=== PATIENT | female | born 1930 ===

== ENCOUNTER 2017-06-24 06:23 | Day surgery (SDC) | payer MEDICARE, OTHER ==
[2017-06-24] VITALS (10 sets, daily range): BP systolic 150–193; BP diastolic 65–89
[~2017-06-24] VITALS: Ht 157.5 cm; Wt 93.4 kg
[2017-06-24] MEDS ORDERED: Dexamethasone 4mg/ml vial ONE (07:07)
[2017-06-24] MEDS ORDERED: Bupivacaine 0.5% Inj 30 ml vial INJ ONE (07:08)
[2017-06-24] MEDS ORDERED: Lidocaine 1% Plain 30 ml INJ ONE (07:08)
[2017-06-24] MEDS ORDERED: FARXIGA5 MG PO (07:15)
[2017-06-24] MEDS ORDERED: JANUMET 50-1,01 EACH ORAL (07:15)
[2017-06-24] MEDS ORDERED: MECLIZINE HCL12.5 MG ORAL (07:15)
[2017-06-24] MEDS ORDERED: NOVOLOG100 UNIT/3 SUBQ (07:15)
[2017-06-24] MEDS ORDERED: LEVEMIR100 UNIT/1 SUBQ (07:15)
[2017-06-24 07:24] LABS: INR 1.1 (0.9-1.1); PROTHROMBIN TIME 11.4 SEC (9.30-11.50)
[2017-06-24] MEDS ORDERED: Propofol 10mg/ml 20ml IV ONE (07:30)
[2017-06-24] MEDS ORDERED: NS Irrig 1000ml ONE (07:30)
[2017-06-24] MEDS ORDERED: LR 1000ml ONE (07:30)
[2017-06-24] MEDS ORDERED: Sterile Water Irrig 1000ml IRRIG ONE (07:30)
[2017-06-24] MEDS ORDERED: fentaNYL 100 mcg/2 mL IV ONE (07:30)
[2017-06-24] MEDS ORDERED: Midazolam 2mg/2ml Inj ONE (07:30)
--- NOTE | 2017-06-24 07:40 | Pre-Procedure Note/Attestation ---
Pre-Procedure Note/Attestation Complete Prior to Procedure Planned Procedure: left Procedure Narrative: Hammertoe correction fifth left digit Indications for Procedure Pre-Operative Diagnosis: Hammertoe deformity fifth left digit Attestation I attest that I discussed the nature of the procedure; its benefits; risks and complications; and alternatives (and the risks and benefits of such alternatives ), prior to the procedure, with the patient (or the patient's legal packaging sales representative). I attest that, if there was a reasonable possibility of needing a blood transfusion, the patient (or the patient's legal packaging sales representative) was given the [facility] standardized written summary, pursuant to the Etienne Erlanger Blood Safety Act ([place] Health and Safety Code # 1645, as amended). I attest that I re-evaluated the patient just prior to the surgery and that there has been no change in the patient's H&P, except as documented below: KIM MARTIN Jun 24, 2017 07:40
[2017-06-24] MEDS ORDERED: LR 1000ml 1,000 ML IVLG SCH (08:14)
--- NOTE | 2017-06-24 08:14 | Anethesia Preoperative Eval ---
Anesthesia Pre-op PMH/ROS General Date of Evaluation: Jun 24, 2017 Time of Evaluation: 07:15 Anesthesiologist: Bailey ASA Score: ASA 3 Mallampati Score Class I : Soft palate, uvula, fauces, pillars visible Class II: Soft palate, uvula, fauces visible Class III: Soft palate, base of uvula visible Class IV: Only hard plate visible Mallampati Classification: Class III Surgeon: Pam Diagnosis: L 5-th toe hammer toe deformity Surgical Procedure: l foot 5-th toe hammer toe correction Anesthesia History: none Family History: no anesthesia problems Allergies: Coded Allergies: No Known Allergies (Unverified , 06/24/17) Medications: see eMAR Past Medical History Cardiovascular: Reports: HTN, other - CHF, Denies: CAD, NM, valve dz, arrhythmia Pulmonary: Reports: LUIS CARLOS, Denies: asthma, COPD, other Gastrointestinal/Genitourinary: Reports: GERD, Denies: CRI, ESRD, other Neurologic/Psychiatric: Reports: depression/anxiety, Denies: dementia, CVA, TIA, other Endocrine: Reports: DM - on insulin HEENT: Reports: cataract (L), cataract (R), Denies: glaucoma, MARSHALL (L), MARSHALL (R), other Hematology/Immune: Reports: anemia Musculoskeletal/Integumentary: Reports: DJD, Denies: OA, RA, DDD, edema, other Other: obesity PMH Narrative: as above PSxH Narrative: see chart Anesthesia Pre-op Phys. Exam Physician Exam Last Vital Signs Date Time Temp Pulse Resp B/P (MAP) Pulse Ox O2 Delivery O2 Flow Rate FiO2 06/24/17 07:11 97.8 65 18 171/87 95 Room Air Constitutional: NAD Neurologic: CN 2-12 intact Cardiovascular: RRR Gastrointestinal: other - obesty Airway Exam Mallampati Score: Class III MO: limited Neck: stiff ROM: limited Teeth: missing Dentures: no upper, no lower Anesthesia Pre-op A/P Labs Coagulation Test 06/24/17 06:50 Prothrombin Time 11.4 SEC (9.30-11.50) Prothromb Time International Ratio 1.1 (0.9-1.1) Activated Partial Thromboplast Time 25 SEC (23-33) Studies Pre-op Studies: EKG - NSR Risk Assessment & Plan Assessment: ASA 3 Plan: MAC Status Change Before Surgery: No Pre-Antibiotics Drug: Ancef 1 gr. Given Within 1 Hr of Incision: Yes Time Given: 07:58 NIA BENAVIDEZ M.D. Jun 24, 2017 08:14
[2017-06-24] MEDS ORDERED: fentaNYL 100 mcg/2 mL IV PRN (08:15)
[2017-06-24] MEDS ORDERED: DiphenhydrAMINE 50mg/ml Inj IVP PRN (08:15)
--- NOTE | 2017-06-24 08:26 | Brief Operative Note ---
Immediate Post Operative Note Operative Note Pre-op Diagnosis: Hammertoe deformity fifth left digit Procedure: Arthroplasty fifth left PIPJ Post-op Diagnosis: same Post-op Diagnosis: same as pre-op Surgeon: Pam Anesthesiologist: Bailey Anesthesia: MAC Specimen: yes Complications: none Condition: stable Fluids: saline Estimated Blood Loss: minimal Drains: none Implant(s) used?: No KIM MARTIN Jun 24, 2017 08:26
--- NOTE | 2017-06-24 09:59 | Immediate Post-Op Evaluation ---
Immediate Post-Op Evalulation Immediate Post-Op Evalulation Procedure: L 5-th hammer toe correction Date of Evaluation: Jun 24, 2017 Time of Evaluation: 08:28 IV Fluids: 300 Blood Products: none Estimated Blood Loss: min Urinary Output: none Blood Pressure Systolic: 176 Blood Pressure Diastolic: 84 Pulse Rate: 72 Respiratory Rate: 20 O2 Sat by Pulse Oximetry: 99 Temperature (Fahrenheit): 97.7 Pain Score (1-10): 2 Nausea: No Vomiting: No Complications none Patient Status: awake, patent, none Hydration Status: adequate NIA BENAVIDEZ M.D. Jun 24, 2017 09:59
--- NOTE | 2017-06-24 10:29 | 48 Hour Post Anesthesia Eval ---
Post Anesthesia Evaluation Procedure: L 5-th hammer toe correction Date of Evaluation: Jun 24, 2017 Time of Evaluation: 10:28 Blood Pressure Systolic: 156 0: 79 Pulse Rate: 72 Respiratory Rate: 20 Temperature (Fahrenheit): 97.6 O2 Sat by Pulse Oximetry: 99 Airway: patent Nausea: No Vomiting: No Pain Intensity: 2 Hydration Status: adequate Cardiopulmonary Status: stable Mental Status/LOC: patient returned to baseline Follow-up Care/Observations: n/a Post-Anesthesia Complications: none Follow-up care needed: ready to discharge NIA BENAVIDEZ M.D. Jun 24, 2017 10:29
--- NOTE | 2017-06-24 11:29 | Diagnostic Imaging Report ---
Indication: Post surgery Comparison: None Findings: 3 views of the left foot were obtained. The head of the fifth proximal phalange of the dissected. No other surgical defects are seen. Bones are osteopenic. Calcaneal plantar and posterior spurs noted. Soft tissue swelling is present. Vascular calcifications are present. Impression: Postsurgical confirmation as discussed above
--- NOTE | 2017-06-24 13:41 | Cardiology Report ---
APPROVED REPORT EKG Measurement Heart [id number] Normal sinus rhythm Normal ECG
--- NOTE | 2017-06-24 16:01 | History and Physical Report ---
DATE OF ADMISSION: 06/24/2017 HISTORY OF PRESENT ILLNESS: This is an 86-year-old white female that is admitted today for an outpatient hammertoe correction of her fifth left digit. The patient has been suffering from her toe for the past several years. She has been under my care for the past several months with an attempt to treat the hammertoe conservatively. Treatment included padding and shoe gear modification and the conservative treatment failed to alleviate the symptoms. The patient elected to proceed with surgical correction of the hammertoe. PAST MEDICAL HISTORY: Remarkable for insulin dependent diabetes mellitus, hypertension, and arthritis. MEDICATIONS: NovoLog, Levemir, docusate, Crestor, Protonix, Lopressor, Norvasc, meclizine, and Ecotrin. ALLERGIES: None. PODIATRIC PHYSICAL EXAMINATION: VASCULAR STATUS: Dorsalis pedis and posterior tibial arteries are equally palpable measuring 1/4 bilaterally. Capillary filling time is less than 4 to 5 seconds to all digits bilaterally. Homans sign is negative. Varicosities are present in bilateral lower extremities. Homans sign is negative. NEUROLOGICAL: Reveals reduced sensation to the forefoot bilaterally, vibration and proprioception is intact bilaterally. Reflexes, Achilles, and patellar are 1/4 bilaterally. Clonus is absent. MUSCULOSKELETAL: Reveals an adductovarus hammertoe deformity of the fifth left digit. The fifth left digit is underriding the fourth digit. There is mild semi-reducible hammertoe deformities of digits 2 through 5 on the right. No other structural deformities are noted other than general arthritic conditions of the ankle and subtalar joints bilaterally. DERMATOLOGICAL: Reveals dystrophic, mycotic nails bilaterally. There is an abrasion over the medial aspect of the fifth left digit and some hyperkeratotic tissue over the lateral aspect of that digit. No other skin lesions, ulcerations or scars are noted in bilateral lower extremity. ASSESSMENT: Hammertoe deformity fifth left digit. PLAN: The patient is admitted today for arthroplasty of her fifth left digit. Risks, complications, and alternatives discussed with the patient's again. Postoperative instructions were given to the patient. Kwan Orozco D.P.M. DR: WESTON JOB#: [id number] CC:
--- NOTE | 2017-06-24 20:15 | Operative Note - Dictated ---
DATE OF OPERATION: 06/24/2017 SURGEON: Kwan Orozco D.P.M. ANESTHESIOLOGIST: Robert Avalos M.D. ANESTHESIA: Local standby. PREOPERATIVE DIAGNOSIS: Hammertoe deformity, fifth left digit. POSTOPERATIVE DIAGNOSIS: Hammertoe deformity, fifth left digit. PROCEDURE PERFORMED: Arthroplasty fifth left proximal interphalangeal joint. Description of the Operation: The patient was brought to the operating room and was placed on the operating room table in the supine position. Intravenous sedation was administered by the anesthesiologist. Local anesthesia consisting of 50:50 mixture of 1% Xylocaine plain and 0.5% Marcaine plain total of 7 mL was administered to the left foot. An ankle tourniquet was applied to the left lower extremity. The foot was prepped and draped in the usual sterile manner and an Esmarch bandage was utilized to exsanguinate the blood and the left ankle tourniquet was inflated to 250 mm of mercury. Attention was directed to the fifth left digit where an approximately 4 cm dorsal linear skin incision was centered over the proximal interphalangeal joint. The incision was deepened utilizing sharp and blunt dissection with care being taken to cauterize and ligate all bleeders. At the level of the joint, a transverse tenotomy was performed. The extensor tendon was reflected proximally and the head of the proximal phalanx was exposed. The collateral ligaments were severed. Utilizing a sagittal saw, the head of the proximal phalanx was resected in total. The remaining bone was rasped smooth. The wound was copiously flushed utilizing sterile saline. At this point, the extensor tendon was reapproximated utilizing 4-0 Vicryl in a simple interrupted type stitch. The skin was then reapproximated utilizing 4-0 nylon in a simple interrupted type stitch. The wound was dressed utilizing an Adaptic 4 x 4 gauze and 3 inch Tony. The left ankle tourniquet was deflated and vascular supply was noted to all digits of left foot. Kwan Orozco D.P.M. DR: WESTON JOB#: [id number] CC:
== END 2017-06-24 11:20 | disposition home or self-care (01) ==
LOC: SUR 06:23
DX: M20.42 Other hammer toe(s) (acquired), left foot (principal); E11.9 Type 2 diabetes mellitus without complications; Z79.4 Long term (current) use of insulin; I10 Essential (primary) hypertension; M19.90 Unspecified osteoarthritis, unspecified site; B35.1 Tinea unguium; E66.9 Obesity, unspecified; I50.9 Heart failure, unspecified; D64.9 Anemia, unspecified; G47.33 Obstructive sleep apnea (adult) (pediatric); K21.9 Gastro-esophageal reflux disease without esophagitis; F32.9 Major depressive disorder, single episode, unspecified; F41.9 Anxiety disorder, unspecified
CPT/HCPCS: 28285; 36415; 73630; 82962; 85610; 85730; 93005; J0690; J2001; J2250; J2405; J2704; J3010; J3490; J7120; 94003; 94150